=== PATIENT | female | born 1955 | race American Indian/Alaskan Native ===

== ENCOUNTER 2017-05-21 09:18 | Outpatient (CLI) | payer OTHER ==
--- NOTE | 2017-05-21 10:47 | XRay Report ---
Bilateral knee: History: Knee pain. Findings: Narrowing of the medial compartment and patellofemoral compartment right and left knee joint, more pronounced at right knee joint. Sclerotic articular surfaces with osteophyte suggestive of severe degenerative changes right knee with moderate degenerative changes left knee. There is suspected chronic fracture noted on the lateral femoral condyle articular margin right knee. Impression: Findings as detailed above. If clinically indicated MRI scan or CT scan may be utilized for further evaluation.
== END 2017-05-21 09:19 | disposition home or self-care (01) ==
LOC: SPVIMAG 09:18
PROVIDERS: ATTEND Orthopaedic Surgery
DX: M17.12 Unilateral primary osteoarthritis, left knee (principal)